=== PATIENT | female | born 1985 | race African-American/Black ===

== ENCOUNTER 2019-11-15 15:22 | Emergency (ER) | payer OTHER ==
[~2019-11-15] VITALS: Ht 172.7 cm; Wt 65.8 kg
[2019-11-15 15:48] VITALS: BP 111/66
[2019-11-15] MEDS ORDERED: IBUPROFEN 800800 MG PO (16:30)
== END 2019-11-15 17:32 | disposition home or self-care (01) ==
LOC: ER 15:22
DX: J02.9 Acute pharyngitis, unspecified (principal); F17.210 Nicotine dependence, cigarettes, uncomplicated